=== PATIENT | female | born 1975 | race Caucasian/White ===

== ENCOUNTER 2022-03-19 16:08 | Outpatient (CLI) | payer BC, SELFPAY ==
[2022-03-19 17:32] LABS: Albumin* 4.2 g/dL (3.3-5.0); Chloride* 105 mmol/L (96-114)
[2022-03-19 17:33] LABS: Potassium* 4.4 mmol/L (3.6-5.1); Sodium* 139 mmol/L (135-149)
[2022-03-19 17:35] LABS: Carbon Dioxide* 29 mmol/L (20-32); Cholesterol* 157 mg/dL (90-199); Creatinine* 0.8 mg/dL (0.5-1.5); Estimated Glomerular Filt Rate 92 ml/min; Total Protein* 6.8 g/dL (6.0-8.3)
[2022-03-19 17:36] LABS: Alanine Aminotransferase* 22 U/L (4-35); Alkaline Phosphatase* 52 U/L (40-150); Aspartate Amino Transferase* 27 U/L (12-35); Bilirubin Total* 0.2 mg/dL (0.1-1.5); Blood Urea Nitrogen* 14 mg/dL (5-24); Calcium* 9.1 mg/dL (8.4-10.6); Glucose* 105 mg/dL (60-115); Triglycerides* 178 mg/dL (40-149)
[2022-03-19 17:37] LABS: HDL Cholesterol* 33 mg/dL (>=50); LDL Cholesterol Calculated 88 mg/dL (<100)
[2022-03-19 18:05] LABS: TSH With Reflex to FT4* 0.046 uIU/mL (0.270-4.200)
[2022-03-19 18:09] LABS: Ferritin* 22.6 ng/mL (6.24-137.0)
[2022-03-19 18:45] LABS: Free T4 Free Thyroxine* 1.04 ng/dL (0.70-1.85)
== END 2022-03-19 16:09 | disposition home or self-care (01) ==
PROVIDERS: PCP Family Medicine; Visit Provider Family Medicine
DX: Z00.00 Encounter for general adult medical examination without abnormal findings (principal); R53.83 Other fatigue; D50.9 Iron deficiency anemia, unspecified; E55.9 Vitamin D deficiency, unspecified; Z13.6 Encounter for screening for cardiovascular disorders
CPT/HCPCS: 80053; 80061; 82728; 84439; 84443

== ENCOUNTER 2022-08-19 11:37 | Outpatient (CLI) | payer SELFPAY ==
[2022-08-19 16:08] LABS: TSH With Reflex to FT4* 0.125 uIU/mL (0.270-4.200)
[2022-08-19 16:41] LABS: Free T4 Free Thyroxine* 0.97 ng/dL (0.70-1.85)
== END 2022-08-19 11:38 | disposition home or self-care (01) ==
LOC: NFLDREF 11:38
PROVIDERS: PCP Family Medicine; Visit Provider Family Medicine
DX: Z01.419 Encounter for gynecological examination (general) (routine) without abnormal findings (principal); E78.5 Hyperlipidemia, unspecified; R79.89 Other specified abnormal findings of blood chemistry; E66.9 Obesity, unspecified; D50.9 Iron deficiency anemia, unspecified
CPT/HCPCS: 84439; 84443

== ENCOUNTER 2022-09-23 14:05 | Outpatient (CLI) | payer OTHER, SELFPAY ==
--- NOTE | 2022-09-23 14:00 | CRLHL7_ITS ---
For Patients: As a result of the Century Cures Act, medical imaging exams and procedure reports are released immediately into your electronic medical record. You may view this report before your referring provider. If you have questions, please contact your health care provider. INDICATION: SUPERFICIAL VISIBLE DILATED VEINS COMPARISON: None. TECHNIQUE: A compression venous ultrasound exam was performed of the left lower extremity using rubio-scale imaging, color Doppler and spectral Doppler analysis. FINDINGS: Sonographic imaging of the left lower extremity demonstrates normal compressibility and color Doppler venous blood flow within the common femoral vein, deep femoral vein, and the proximal greater saphenous vein. Within the thigh, the femoral vein is patent and compressible. At a lower level, the popliteal and posterior tibial veins also show normal compressibility and color Doppler venous blood flow. Limited imaging of the contralateral groin demonstrates a normal spectral waveform and color Doppler venous blood flow within the right common femoral vein. Multiple superficial varicosities are present within the medial right calf with associated hypoechoic clot. IMPRESSION: No evidence of deep vein thrombosis within the left lower extremity. Superficial thrombophlebitis involving varicose veins in the medial right calf. Dictated by Rojelio Sol MD @ 09/23/2022 3:56:54 PM (Electronically Signed)
== END 2022-09-23 14:06 | disposition home or self-care (01) ==
PROVIDERS: PCP Family Medicine; Visit Provider Family Medicine
DX: M79.604 Pain in right leg (principal); I80.01 Phlebitis and thrombophlebitis of superficial vessels of right lower extremity
CPT/HCPCS: 93971

== ENCOUNTER 2024-03-16 15:11 | Outpatient (CLI) | payer OTHER, SELFPAY ==
--- OUTSIDE RECORDS SUMMARY | 2024-03-18 09:44 | XMS_ITS | Clinical Summary ---
Author Organization [facility] Address [place], [place] [address] Care Team Providers Care Sports Trainer Name Role Phone Xavier Liao MD Unavailable [phone] Pcp, No Primary Care Provider Unavailabl e Allergies Active Allergy Reactions Criticality Noted Date Comments Fish Oil Edema 12/04/2017 Hands swelled Sulfa (Sulfonamide Antibiotics) Rash 09/25 Rash on legs Medications Medication Sig Dispensed Refills Start Date End Date Status JOSE 180 MG TAB take 1 tablet (180 mg) by oral route once daily 0 0 07/07/2008 Active naphazoline-pheni ramine (OPCON-A) 0.59931-3.315 % ophthalmic solution 0 07/06/2019 Active montelukast (SINGULAIR) 10 mg tabletIndications :Allergic rhinitis, unspecified seasonality, unspecified trigger Take 1 tablet by mouth at bedtime. 90 tablet. 3 08/01/2020 Active busPIRone (BUSPAR) 10 mg tabletIndications :Anxiety Take 1 tab po Q am and 1/2 tab po q PM 135 tablet. 3 08/01/2020 Active aspirin (ECOTRIN) 81 mg enteric coated tablet Take 1 tablet by mouth once daily with a meal. 0 08/01/2020 Active Ferrous Sulfate, Dried (SLOW RELEASE IRON) 160 mg (50 mg iron) TbER Take by mouth. 0 08/01/2020 Active Biotin 10,000 mcg capsule Take 2 capsules by mouth. 0 08/01/2020 Active psyllium husk (METAMUCIL) 0.4 gram cap Take 2 capsules by mouth. 0 08/01/2020 Active Calcium-Cholecalc iferol, D3, 600 mg calcium- 200 unit cap Take by mouth. 0 08/01/2020 Active Emanu-7-CNZ-EPA-F alok Oil 1,000 mg (120 mg-180 mg) cap Take 1 capsule by mouth. 0 08/01/2020 Active hydrocortisone (ANUSOL-HC SUPPOSITORY) 25 mg suppositoryIndica tions:Hemorrhoids , external INSERT 1 SUPPOSITORY RECTALLY 2 TIMES DAILY. 15 Suppository 02/18/2021 Active sertraline (ZOLOFT) 50 mg tabletIndications :Adjustment disorder with depressed mood,Anxiety TAKE 1.5 TABLETS BY MOUTH ONCE DAILY. 45 Tablet 07/10/2021 Active omeprazole (PRILOSEC) 20 mg Delayed-Release capsuleIndication s:Gastric reflux TAKE 1 CAPSULE BY MOUTH ONCE DAILY BEFORE A MEAL. 30 Capsule 07/10/2021 Active Active Problems Problem Noted Date Diagnosed Date Routine adult health maintenance 12/29/2018 Overview: Colonoscopy 12/2018 internal hemorrhoids, repeat in 10 years Adjustment disorder with mixed anxiety and depre ssed mood 12/16/2018 Gastroesophageal reflux disease with esophagitis 02/22/2016 Overview: EGD 02/2016 reflux Asymptomatic varicose veins 02/28/2009 Allergic rhinitis, cause unspecified Immunizations Name Administration Dates Next Due AMB Influenza, IIV3 (Age >=3 years)(Flu Clinic Only) 07/07/2008 HepA-HepB (Twinrix) 08/01/2008,02/24/2008,2007 Influenza A (H1N1), Inactivated 05/16/2014 Influenza Virus, Unspecified 05/25/2013 Influenza, IIV3 (Age 6-35 mos) 05/27/2011 Influenza, IIV3 (Age >=3 years) 05/03/20 12,05/27/2011,06/10/2010,2008,07/07/2008,07/24/2007,07/01/2006 Influenza, IIV4 07/08/2016,06/05/2015,05/16/2014 Pneumococcal Poly,23-Valent (Pneumovax) 07/01/2006 Td (Age >=7 Years) 06/24/2006 Tdap 10/21/2011 Tuberculin (PPD) 03/05/2009 Family History Medical History Relation Name Comments Cancer Brother non hodgkins ly mphoma at age 47 Colonic polyp Father Heart Disease Father angiogram x2, first diagnosed in his 50's Coronary artery disease Mother [place] Cancer Other niece hodgkins lympho ma Leukemia Son Cancer-breast No Family History Relation Name Status Comments Brother Father Mother Other niece Alive Son Social History Tobacco Use Types Packs/Day Years Used Date Smoking Tobacco: Never Smokeless Tobacco: Never Tobacco Cessation:Counseling Given: Yes Alcohol Use Standard Drinks/Week Comments No 0 (1 standard drink = 0.6 oz pur e alcohol) PHQ-2 Answer Date Recorded PHQ-2 TOTAL SCORE 0 08/01/2020 Social Connections Answer Date Recorded Frequency of Communication with Friends and Fami ly Not on file 08/24/2021 Financial Resource Strain Answer Date R ecorded Difficulty of Paying Living Expenses Not on file 08/24/2021 Difficulty of Paying Living Expenses Not on file 08/24/2021 Sex and Gender Information Value Date Recorded Sex Assigned at Not on file Gender Identity Not on file Sexual Orientation Not on file Obstetrics History Para Term AB IAB SAB Ectopic Multiple Livin g Live Births 8 7 7 0 1 0 1 0 0 7 6 Date Outcome GA Total Labor Labor/2nd/3rd Weight Sex Type Anes PTL Yris A1 A5 Name Clin 1995 SAB 1996 Term 40w 0d 12h 00m/ 4.11 kg (9 lb 1 oz) M Vag Livin g tanika Delivery Location[place] Comments:kidney stone at 36 weeks 1998 Term 40w 0d 7h 00m/ 4.25 kg (9 lb 6 oz) M Vag Livin g mitche ll Delivery Location:[facility] Comments:induced 2000 Term 40w 0d 6h 00m/ 4.08 kg (9 lb) M Vag Livin g nitesh t Delivery Location:[place] 2002 Term 40w 0d 6h 00m/ 4.93 kg (10 lb 14 oz) M Vag Livin g mary iel Delivery Location:[place] Comments:induced, leuk emia at 1year 2006 Term 40w 0d 4h 00m/ 3.8 kg (8 lb 6 oz) F Vag Livin g Arlin Nahomi Delivery Location:[place] 2008 Term 40w 0d 3.91 kg (8 lb 10 oz) M Delmar Comer Delivery Location:[place] 2011 Term 40w 1d M Vag oz Comments:System Genera nazia. Please review and update details. Last Filed Vital Signs Vital Sign Reading Time Taken Comments Blood Pressure 106/71 08/01/2020 9:11 AM RECORDS ASSOCIATE Pulse 58 08/01/2020 9:11 AM RECORDS ASSOCIATE Temperature 36.8 ??C (98.2 ??F) 07/06/2019 10:[address] Respiratory Rate 16 01/11/2019 8:40 AM CDT Oxygen Saturation 99% 08/01/2020 9:11 AM RECORDS ASSOCIATE Inhaled Oxygen Concentration - - Weight 89.4 kg (197 lb) 08/01/2020 9:11 AM RECORDS ASSOCIATE Height 164.8 cm (5' 4.88) 08/01/2020 9:11 AM CS T Body Mass Index 32.9 08/01/2020 9:11 AM RECORDS ASSOCIATE Plan of Treatment Health Maintenance Due Date Last Done Comments Hepatitis C screening for age 18-79 1993 BMI (ht and wt on same day) for age 18+ 08/01/2021 08/01/2020, 07/06/2019, 04/27/2019, Additional history exists Mammogram for age 45-75 08/01/2021 08/01/2020, 07/29 Depression screening for age 12+ 08/02/2021 08/02/2020, 08/01/2020, 07/06/2019, Additional history exists Tetanus booster 10/21/2021 10/21/2011, 06/24/2006 COVID-19 vaccine series (2022-24 season) 2023 Pap test for age 21-65 08/01/2023 0, 11/11/2017, 06/12/2015, Additional history exists Influenza for age 9-49 04/24/2024 6, 06/05/2015, 05/16/2014, Additional history exists Lipids for age 45-75 08/01/2025 08/01/2020, 11/18/2017, 07/22/2016, Additional history exists Colonoscopy through age 75 12/29/202812/29, 12/29/2018, 12/29/2018 Pneumococcal series for age 6-64 Aged Out 07/01/2006 No longer eligible based on patient's age to complete this topic HIV for age 15-65 Completed 02/26/2011 Tdap Completed 10/21/2011 Procedures Procedure Name Priority Date/Time Associated Diagnosis Comments XR MAMMO BILAT SCREENING Routine 08/01/2020 11:34 AM RECORDS ASSOCIATE Encounter for screening mammogram for malignant neoplasm of breast LIPID PANEL W REFLEX MEASURED LDL Routine 08/01/2020 10:09 AM RECORDS ASSOCIATE Lipid screening LINE CLOSER THIN PREP PAP SCREEN IMAGED Routine 08/01/2020 9:50 AM RECORDS ASSOCIATE Pap smear for cervical cancer screening COLONOSCOPY 12/29/2018 8:52 AM CDT ANTI HIV 1/2 Routine 02/26/2011 9:54 AM CDT Amenorrhea confirmed from Last 3 Months or Most Recently Relevant to Health Maintenance Results * XR MAMMO BILAT SCREENING (08/01/2020 11:34 AM RECORDS ASSOCIATE) Anatomical Region Laterality Modality BREASTS, Breast Left, Breast Right Bilateral Mammography Impressions 08/02/2020 3:42 PM RECORDS ASSOCIATE ??There is no radiographic evidence for malignancy. ??Recommend annual mammograms. A lay language report of this examination will be provided to the patient. MAMMOGRAM ASSESSMENT: ??ACR 1 Negative Narrative 08/02/2020 3:42 PM RECORDS ASSOCIATE XR MAMMO BILAT SCREENING [[id number]] CLINICAL HISTORY: ??This is an asymptomatic 44 y.o. patient. INDICATION FOR EXAM: Mammogram Screening. TECHNIQUE: CC & MLO views were obtained. ??This digital study was evaluated with the assistance of Computer-Aided Detection. COMPARISON FILM: Yes 07/29/16 Neteven ?? FINDINGS: ??Mammographically, the breast tissue has scattered fibroglandular densities. ??There are no dominant masses, suspicious micro calcifications or areas of architectural distortion. Brenda Comer MD MAMMO * (ABNORMAL) LIPID PANEL W REFLEX MEASURED LDL (08/01/2020 10:09 AM RECORDS ASSOCIATE) CHOLESTEROL,TOTAL 170 100 - 199 mg/dL 08/01/2020 4:56 PM RECORDS ASSOCIATE [facility] TRIGLYCERIDES 111 <150 mg/dL 08/01/2020 4:56 PM RECORDS ASSOCIATE [facility] HDL CHOLESTEROL 34(L) >40 mg/dL 0 4:56 PM RECORDS ASSOCIATE [facility] NON-HDL CHOLESTEROL 136 <145 mg/dl 08/01/2020 4:56 PM RECORDS ASSOCIATE [facility] TRA LABORATORY CHOL/HDL RATIO 5.00(H) <4.50 08/01/2020 4:56 PM RECORDS ASSOCIATE [facility] TRAL [facility] LDL CHOLESTEROL 114 <=130 mg/dL 08/01/2020 4:56 PM [facility] PROVIDER ORDERED STATUS RANDOM 08/01/2020 4:56 PM [facility] Blood BLOOD SPECIMEN / Unknown Venipuncture / Unknown 08/01/2020 10:09 AM RECORDS ASSOCIATE 08/01/2020 10:09 AM RECORDS ASSOCIATE Brenda Comer MD CHEMISTRY [facility] [address] [place] [address], * LINE CLOSER THIN PREP PAP SCREEN IMAGED (08/01/2020 9:50 AM RECORDS ASSOCIATE) Pathologist [facility] [place] Case Report Gynecologic Cytology Report ? Case: [id number] ? Authorizing Provider: ??Brenda Comer MD ? Collected: ? 08/01/2020 0950 ? Ordering Location: ? [facility] ?? Received: ?08/01/2020 1144 ? Clinic ? First Screen: ?Say Calderon ? Specimen: ?LINE CLOSER ThinPrep Vial Screening, Cervical ? 08/14/2020 1:04 PM RECORDS ASSOCIATE [facility]AL [facility] INTERPRETATION/ RESULT NEGATIVE FOR INTRAEPITHELIAL LESION OR MALIGNANCY (NIL) (none) 08/14/2020 1:04 PM RECORDS ASSOCIATE [facility] IMEN ADEQUACY Satisfactory for evaluation Endocervical component present 08/14/2020 1:04 PM RECORDS ASSOCIATE [facility] HPV REQUEST HPV if ASCUS 08/14/2020 1:04 PM RECORDS ASSOCIATE [facility] Date of LMP 07/12/2020 08/14/2020 1:04 PM RECORDS ASSOCIATE [facility] Last Pap Date 11/11/17 08/14/2020 1:04 PM RECORDS ASSOCIATE [facility] Last Pap Result NIL 0 1:04 PM RECORDS ASSOCIATE [facility] Abnormal Pap or [place] Bx in last 5 years No 08/14/2020 1:04 PM RECORDS ASSOCIATE [facility] Menstrual Status Regular Periods 08/14/2020 1:04 PM RECORDS ASSOCIATE [facility] [place] Bx Done Today No 08/14/2020 1:04 PM RECORDS ASSOCIATE [facility] Additional Information None given 08/14/2020 1:04 PM RECORDS ASSOCIATE [facility] Comment: Cytology is screened at [facility] - [address], [place] [address] and [facility] - [address], [place] [address] and [facility] - [address] [place] [address] Interpreted at [facility] - [address], [place] [address] Automated Review Successful 08/14/2020 1:04 PM [facility] Comment:Specimen processed s uccessfully by automated pleat taper device, ThinPrep Imaging System, [employer] Note The pap test is a screening technique, not a diagnostic procedure. It is used primarily to screen for squamous cancers and precursor lesions. Published studies have shown that it is subject to both false negative and false positive results. The pap test should not be used as the sole means to diagnose or exclude pre-malignant and malignant lesions. 08/14/2020 1:04 PM [facility] Other (Cervical) Non-Blood / Unknown 08/01/2020 9:50 AM RECORDS ASSOCIATE 08/01/2020 11:44 AM RECORDS ASSOCIATE Brenda Comer MD PATHOLOGY/CYTOLOGY [facility] [address] [place] [address], [place] * COLONOSCOPY (12/29/2018 8:52 AM CDT) 12/29/2018 8:52 AM CDT Narrative Transcriptions Gianni Eddy MD - 12/29/2018 10:11 AM CDT Patient Name: Kelly Garduno Procedure Date: 12/29/2018 Gender: Female Date of : 1975 Admit Type: Outpatient Procedure: Colonoscopy Proceduralist: Gianni Eddy MD , Flor Rubio (Nurse) Referring MD: Deejay Valadez Indications/Pre-Op Diagnosis: Evaluation of unexplained GI bleeding Medications: Fentanyl 100 micrograms IV, Midazolam 4 mgIV, The level of sedation administered wasmoderate Procedure Description: The patient had risks, benefits and alternatives explained to andgave informed consent. The patient had a stable cardiopulmonary status and judged an adequate candidate for conscious sedation. The [id number] was passed through the anus and advanced tothe cecum, identified by appendiceal orifice and ileocecal valve. The colonoscopy was performed without difficulty. The patient toleratedthe procedure well. The quality of the bowel preparation was good. The ileocecal valve, appendiceal orifice, and rectum were photographed. Complications: No immediate complications. Estimated Blood Loss & Specimen: Estimated blood loss: none. Specimen collected - None Findings: The perianal and digital rectal examinations were normal. Non-bleeding internal hemorrhoids were found. The hemorrhoids weresmall. The exam was otherwise without abnormality on direct and retroflexion views. Impressions/Post-Op Diagnosis: - Non-bleeding internal hemorrhoids. - The examination was otherwise normal on direct and retroflexionviews. - No specimens collected. Recommendation: - Patient has a contact number available for emergencies. The signsand symptoms of potential delayed complications were discussed with the patient. Return to normal activities tomorrow. Written discharge instructions were provided to the patient. - Resume previous diet. - Continue present medications. - Repeat colonoscopy in 10 years for screening purposes. Moderate Sedation: Moderate (conscious) sedation was administered by the endoscopy nurse and supervised by the endoscopist. The following parameters were monitored: oxygen saturation, heart rate, respiratory rate, blood pressure, adequacy of pulmonary ventilation and reponse to care. Please refer to the patien'ts medical record flowsheets and nursing notes for moderate sedation details. Total physician intraservice time was 15 minutes. Gianni Eddy MD 12/29/2018 10:11:10 AM This report has been signed electronically. Note Initiated On: 12/29/2018 8:52 AM Procedure Code(s): --- Professional --- 60533, Colonoscopy, flexible; diagnostic, including collection of specimen(s) bybrushing or washing, when performed (separateprocedure) Diagnosis Code(s): --- Professional --- K64.8, Other hemorrhoids K92.2, Gastrointestinal hemorrhage,unspecified CPT copyright 2017 [employer]. All rights reserved. The codes documented in this report are preliminary and upon fleet maintenance manager reviewmay be revised to meet current compliance requirements. Scope In: 9:46:07 AM Scope Withdrawal Time 0 hours 7 minutes 24 seconds Scope Out: 9:57:41 AM Gianni Eddy MD PROCEDURE ORD * ANTI HIV 1/2 (02/26/2011 9:54 AM CDT) ANTI HIV 1/2 Non-reacti ve [facility] Blood specimen (specimen) BLOOD SPECIMEN / Unknown 02/26/2011 9:54 AM CDT 02/26/2011 9:46 AM CDT Brenda Comer MD SEND OUTS [facility] INTERNAL ZIP [id number] [address] [address] from Last 3 Months or Most Recently Relevant to Health Maintenance Care Teams Sports Trainer Relationship Specialty Start Date End Date Pcp, No . PCP - General 07/18/21 Xavier Liao MD [address] [place] [address] Perinatology CLINICAL NEUROPSYCHOLOGIST Perinatology 04/29/11
== END 2024-03-16 15:12 | disposition home or self-care (01) ==
LOC: NFLDREF 03-18 09:42
PROVIDERS: PCP Family Medicine; Referring Provider Family Medicine; Visit Provider Family Medicine
DX: D64.9 Anemia, unspecified (principal); E78.5 Hyperlipidemia, unspecified; R79.89 Other specified abnormal findings of blood chemistry; D50.9 Iron deficiency anemia, unspecified
CPT/HCPCS: 80053; 80061; 82728; 84443

== ENCOUNTER 2024-06-07 15:37 | Outpatient (CLI) | payer OTHER, SELFPAY ==
--- OUTSIDE RECORDS SUMMARY | 2024-06-07 15:41 | XMS_ITS | Clinical Summary ---
Author Organization [facility] Address [place], [place] [address] Care Team Providers Care Dairy Grazer Name Role Phone Xavier Liao MD Unavailable [phone] Pcp, No Primary Care Provider Unavailabl e Allergies Active Allergy Reactions Criticality Noted Date Comments Fish Oil Edema 12/04/2017 Hands swelled Sulfa (Sulfonamide Antibiotics) Rash 09/25 Rash on legs Medications Medication Sig Dispensed Refills Start Date End Date Status JOSE 180 MG TAB take 1 tablet (180 mg) by oral route once daily 0 0 07/07/2008 Active naphazoline-pheni ramine (OPCON-A) 0.52370-4.315 % ophthalmic solution 0 07/06/2019 Active montelukast [...] cap Take by mouth. 0 08/01/2020 Active Boqfn-1-[id number]-F alok Oil 1,000 mg (120 mg-180 mg) [...] Diagnosed Date Routine adult health maintenance 12/29/2018 Overview (12/29/2018): Colonoscopy 12/2018 internal hemorrhoids, repeat in 10 years Adjustment disorder with mixed anxiety and depre ssed mood 12/16/2018 Gastroesophageal reflux disease with esophagitis 02/22/2016 Overview (02/22/2016): EGD 02/2016 reflux Asymptomatic varicose veins 02/28/2009 Allergic rhinitis, cause unspecified Encounters Date Type Department Care Team Description 03/24/2024 Lab Requisition [facility] [phone] Sammie Dawson MD from Last 3 Months Immunizations Name Administration Dates Next Due AMB [...] in his 50's Coronary artery disease Mother ID Cancer Other niece hodgkins lympho ma Leukemia [...] oz) M Vag Livin g tanika Delivery Location:[place] Comments:kidney stone at 36 weeks 1998 Term 40w 0d 7h 00m/ 4.25 kg (9 lb 6 oz) M Vag Livin g mitche ll Delivery Location:[place] Comments:induced 2000 Term 40w 0d 6h 00m/ 4.08 kg (9 lb) M Vag Livin g nitesh t Delivery Location:[place] 2002 Term 40w 0d 6h 00m/ 4.93 kg (10 lb 14 oz) M Vag Livin g mary iel Delivery Location:[place] Comments:induced, leuk emia at 1year 2006 Term 40w 0d 4h 00m/ 3.8 kg (8 lb 6 oz) F Delmar Comer Delivery Location:[place] 2008 Term 40w 0d 3.91 kg (8 lb 10 oz) M Delmar Comer Delivery Location:[place] 2011 Term 40w 1d M Vag oz Comments:System Genera nazia. Please review and update details. Last Filed Vital Signs Vital Sign Reading Time Taken Comments Blood Pressure 106/71 08/01/2020 9:11 AM COMMODITIES REQUIREMENTS ANALYST Pulse 58 08/01/2020 9:11 AM COMMODITIES REQUIREMENTS ANALYST Temperature 36.8 ??C (98.2 ??F) 07/06/2019 10:[address] Respiratory Rate 16 01/11/2019 8:40 AM CDT Oxygen Saturation 99% 08/01/2020 9:11 AM COMMODITIES REQUIREMENTS ANALYST Inhaled Oxygen Concentration - - Weight 89.4 kg (197 lb) 08/01/2020 9:11 AM COMMODITIES REQUIREMENTS ANALYST Height 164.8 cm (5' 4.88) 08/01/2020 9:11 AM CS T Body Mass Index 32.9 08/01/2020 9:11 AM COMMODITIES REQUIREMENTS ANALYST Plan of Treatment Health Maintenance Due Date Last Done Comments Hepatitis C screening for age 18-79 1993 BMI (ht and wt on same day) for age 18+ 08/01/2021 08/01/2020, 07/06/2019, 04/27/2019, Additional history exists Mammogram for age 45-75 08/01/2021 08/01/2020, 07/29 Depression screening for age 12+ 08/02/2021 08/02/2020, 08/01/2020, 07/06/2019, Additional history exists Tetanus booster 10/21/2021 10/21/2011, 06/24/2006 COVID-19 vaccine series ( season) 2024 Influenza for age 9-49 04/24/2024 6, 06/05/2015, 05/16/2014, Additional history exists Lipids for age 45-75 08/01/2025 08/01/2020, 11/18/2017, 07/22/2016, Additional history exists Pap test for age 21-65 03/23/2027 4, 03/23/2024, 08/01/2020, Additional history exists Colonoscopy through age 75 12/29/202812/29, 12/29/2018, 12/29/2018 Pneumococcal series for age 6-64 Aged Out 07/01/2006 No longer eligible based on patient's age to complete this topic HIV for age 15-65 Completed 02/26/2011 Tdap Completed 10/21/2011 Procedures Procedure Name Priority Date/Time Associated Diagnosis Comments LAB TRACKING EVENT Routine 03/23/2024 1: 20 PM CDT HOT STAMP OPERATOR THIN PREP PAP SCREEN IMAGED Routine 03/23/2024 1:20 PM CDT HPV HIGH RISK Routine 03/23/2024 1:20 PM CDT XR MAMMO BILAT SCREENING Routine 08/01/2020 11:34 AM COMMODITIES REQUIREMENTS ANALYST Encounter for screening mammogram for malignant neoplasm of breast LIPID PANEL W REFLEX MEASURED LDL Routine 08/01/2020 10:09 AM COMMODITIES REQUIREMENTS ANALYST Lipid screening COLONOSCOPY 12/29/2018 8:52 AM CDT ANTI HIV 1/2 Routine 02/26/2011 9:54 AM CDT Amenorrhea confirmed from Last 3 Months or Most Recently Relevant to Health Maintenance Results * LAB TRACKING EVENT (03/23/2024 1:20 PM CDT) Other (Other) Client Collect / Unknown 03/23/2024 1:20 PM CDT 03/24/2024 4:22 PM CDT Sammie Dawson MD LAB BILL ONLY [facility] [address] [place] [address], * HOT STAMP OPERATOR THIN PREP PAP SCREEN IMAGED (03/23/2024 1:20 PM CDT) Case Report Gynecologic Cytology Report ? Case: [id number] ? Authorizing Provider: ??Sammie Dawson MD ??Collected: ? 03/23/2024 1320 ? Ordering Location: ? [facility] ?Received: ?03/25/2024 0927 ? First Screen: ?Ashley Bose ? Specimen: ?HOT STAMP OPERATOR ThinPrep Vial Screening, Cervical/Vaginal ? 03/31/2024 1:16 PM CDT [facility] INTERPRETATION/ RESULT NEGATIVE FOR INTRAEPITHELIAL LESION OR MALIGNANCY (NIL) (none) 03/31/2024 1:16 PM CDT [facility] IMEN ADEQUACY Satisfactory for evaluation Endocervical component present 03/31/2024 1:16 PM CDT [facility] HPV REQUEST HPV and PAP 03/31/2024 1:16 PM CDT [facility] Date of LMP 03/03/2024 03/31/2024 1:16 PM CDT [facility] Last Pap Date 08/01/2020 03/31/2024 1:16 PM CDT [facility] Last Pap Result NIL 1:16 PM CDT [facility] Menstrual Status Regular Periods 03/31/2024 1:16 PM CDT [facility] [place] Bx Done Today No 03/31/2024 1:16 PM CDT [facility] Additional Information 03/31/2024 1:16 PM CDT [facility] Comment: Interpreted at [facility] - [address], [place] [address] Automated Review Successful 03/31/2024 1:16 PM CDT [facility] Comment:Specimen processed s uccessfully by automated pulpit operator device, ThinPrep Imaging System, [employer] ANCILLARY TESTING HOT STAMP OPERATOR HPV Ordered, Please see separate report 03/31/2024 1:16 PM CDT [facility] Note The pap test is a screening technique, not a diagnostic procedure. It is used primarily to screen for squamous cancers and precursor lesions. Published studies have shown that it is subject to both false negative and false positive results. The pap test should not be used as the sole means to diagnose or exclude pre-malignant and malignant lesions. 03/31/2024 1:16 PM CDT [facility] Other (Cervical/Vagina l) 03/23/2024 1:20 PM CDT 03/25/2024 9:27 AM CDT Sammie Dawson MD PATHOLOGY/CYTOLO GY [facility] [address] [place] [address], * HPV HIGH RISK (03/23/2024 1:20 PM CDT) TYPE 16 Negative Negative 03/28/2024 2:30 PM CDT [facility] TYPE 18 Negative Negative 03/28/2024 2:30 PM CDT [facility] OTHER HIGH RISK TYPES Negative Negative 03/28/2024 2:30 PM CDT [facility] Other (Cervical/Vagina l) 03/23/2024 1:20 PM CDT 03/25/2024 9:27 AM CDT Narrative [facility] - 03/28/2024 2:30 PM CDT HPV types 16, 18, 31, 33, 35, 39, 45, 51, 52, 56, 58, 59, 66 and 68 DNA were undetectable or below the pre-set threshold. Methodology: Julieta Matias 4800 HPV Test Sammie Dawson MD MICROBIOLOGY [facility] [address] [place] [address], * XR MAMMO BILAT SCREENING (08/01/2020 11:34 AM COMMODITIES REQUIREMENTS ANALYST) Anatomical Region Laterality Modality BREASTS, Breast Left, Breast Right Bilateral Mammography Impressions 08/02/2020 3:42 PM COMMODITIES REQUIREMENTS ANALYST ??There is no radiographic evidence for malignancy. ??Recommend annual mammograms. A lay language report of this examination will be provided to the patient. MAMMOGRAM ASSESSMENT: ??ACR 1 Negative Narrative 08/02/2020 3:42 PM COMMODITIES REQUIREMENTS ANALYST XR MAMMO BILAT SCREENING [[id number]] CLINICAL HISTORY: ??This is an asymptomatic 44 y.o. patient. INDICATION FOR EXAM: Mammogram Screening. TECHNIQUE: CC & MLO views were obtained. ??This digital study was evaluated with the assistance of Computer-Aided Detection. COMPARISON FILM: Yes 07/29/16 [facility] ?? FINDINGS: ??Mammographically, the breast tissue has scattered fibroglandular densities. ??There are no dominant masses, suspicious micro calcifications or areas of architectural distortion. Brenda Comer MD MAMMO * (ABNORMAL) LIPID PANEL W REFLEX MEASURED LDL (08/01/2020 10:09 AM COMMODITIES REQUIREMENTS ANALYST) CHOLESTEROL,TOTAL 170 100 - 199 mg/dL 08/01/2020 4:56 PM COMMODITIES REQUIREMENTS ANALYST [facility] TRIGLYCERIDES 111 <150 mg/dL 08/01/2020 4:56 PM COMMODITIES REQUIREMENTS ANALYST [facility] HDL CHOLESTEROL 34(L) >40 mg/dL 0 4:56 PM COMMODITIES REQUIREMENTS ANALYST [facility] NON-HDL CHOLESTEROL 136 <145 mg/dl 08/01/2020 4:56 PM COMMODITIES REQUIREMENTS ANALYST [facility] CHOL/HDL RATIO 5.00(H) <4.50 08/01/2020 4:56 PM COMMODITIES REQUIREMENTS ANALYST [facility] LDL CHOLESTEROL 114 <=130 mg/dL 08/01/2020 4:56 PM COMMODITIES REQUIREMENTS ANALYST [facility] PROVIDER ORDERED STATUS RANDOM 08/01/2020 4:56 PM COMMODITIES REQUIREMENTS ANALYST [facility] Blood BLOOD SPECIMEN / Unknown Venipuncture / Unknown 08/01/2020 10:09 AM COMMODITIES REQUIREMENTS ANALYST 08/01/2020 10:09 AM COMMODITIES REQUIREMENTS ANALYST Brenda Comer MD [facility] [address] [place] [address], [place] * COLONOSCOPY (12/29/2018 8:52 AM CDT) [...] adequate candidate for conscious sedation. The [id number] was passed through the anus and advanced [...] reponse to care. [facility] nursing [facility] for moderate sedation details. Total physician intraservice time was 15 minutes. Gianni Eddy MD 12/29/2018 10:11:10 AM This report has been signed electronically. Note Initiated On: 12/29/2018 8:52 AM Procedure Code(s): --- Professional --- 97498, Colonoscopy, flexible; diagnostic, including collection of specimen(s) bybrushing or washing, when performed (separateprocedure) Diagnosis Code(s): --- Professional --- K64.8, Other hemorrhoids K92.2, Gastrointestinal hemorrhage,unspecified CPT copyright 2017 [employer]. All rights reserved. The codes documented in this report are preliminary and upon drapery sewer hand reviewmay be revised to meet current compliance requirements. Scope In: 9:46:07 AM Scope Withdrawal Time 0 hours 7 minutes 24 seconds Scope Out: 9:57:41 AM Gianni Eddy MD PROCEDURE ORD * ANTI HIV 1/2 (02/26/2011 9:54 AM CDT) ANTI HIV 1/2 Non-reacti ve Blood specimen (specimen) BLOOD SPECIMEN / Unknown 02/26/2011 9:54 AM CDT 02/26/2011 9:46 AM CDT Brenda Comer MD [facility] INTERNAL ZIP [id number] [address] from Last 3 Months or Most Recently Relevant to Health Maintenance Care Teams Dairy Grazer Relationship Specialty Start Date End Date Pcp, No . PCP - General 07/18/21 Xavier Liao MD [address] [place] [address] Perinatology LIME SLUDGE KILN OPERATOR Perinatology 04/29/11
--- NOTE | 2024-06-07 16:00 | CRLHL7_ITS ---
For Patients: As a result of the Century Cures Act, medical imaging exams and procedure reports are released immediately into your electronic medical record. You may view this report before your referring provider. If you have questions, please contact your health care provider. BILATERAL SCREENING MAMMOGRAM WITH COMPUTER-AIDED DETECTION AND TOMOSYNTHESIS TECHNIQUE: CC and MLO views were obtained. These mammographic images have been obtained using full-field digital technique. These mammographic images were interpreted with the benefit of computer-aided detection. Breast Tomosynthesis was used in this interpretation. COMPARISON FILM: 08/01/20. FINDINGS: There are scattered areas of fibroglandular density. IMPRESSION: There is no radiographic evidence for malignancy. ASSESSMENT: BI-RADS Category 1: Negative RECOMMENDATION: Routine screening mammogram in 1 year. A lay language report of this examination will be provided to the patient. Rojelio Sol M.D. Diagnostic Radiologist [email or web address] SP/Dictated by: Rojelio Sol MD @ 06/14/2024 11:34:00 AM (Electronically Signed)
== END 2024-06-07 15:38 | disposition home or self-care (01) ==
LOC: MAMMO 15:38
PROVIDERS: PCP Family Medicine; Visit Provider Family Medicine
DX: Z12.31 Encounter for screening mammogram for malignant neoplasm of breast (principal)
CPT/HCPCS: 77063; 77067

== ENCOUNTER 2024-09-27 15:01 | Outpatient (CLI) | payer OTHER, SELFPAY ==
--- NOTE | 2024-09-27 15:45 | CRLHL7_ITS ---
For Patients: As a result of the Century Cures Act, medical imaging exams and procedure reports are released immediately into your electronic medical record. You may view this report before your referring provider. If you have questions, please contact your health care provider. INDICATION: Pain in right leg COMPARISON: 09/23/2022 TECHNIQUE: A compression venous ultrasound exam was performed of the right lower extremity using rubio-scale imaging, color Doppler and spectral Doppler analysis. FINDINGS: Sonographic imaging of the right lower extremity demonstrates normal compressibility and color Doppler venous blood flow within the common femoral vein and deep femoral vein. Within the thigh, the femoral vein is patent and compressible. At a lower level, the popliteal and posterior tibial veins also show normal compressibility and color Doppler venous blood flow. Hypoechoic noncompressible thrombus is present within a varicose vein within the proximal posterior thigh. The previously noted superficial clot within the right calf was not imaged on the current study. Limited imaging of the contralateral groin demonstrates a normal spectral waveform and color Doppler venous blood flow within the left common femoral vein. IMPRESSION: No DVT. Superficial thrombus within a varicose vein in the right posterior thigh. Would consider anticoagulation treatment. Dictated by Rojelio Sol MD @ 09/27/2024 4:29:47 PM (Electronically Signed)
== END 2024-09-27 15:02 | disposition home or self-care (01) ==
LOC: US 15:01
PROVIDERS: PCP Family Medicine; Visit Provider Registered Nurse
DX: M79.604 Pain in right leg (principal); I82.811 Embolism and thrombosis of superficial veins of right lower extremity
CPT/HCPCS: 93971

== ENCOUNTER 2024-11-15 14:48 | Outpatient (CLI) | payer OTHER, SELFPAY | END 2024-11-15 14:49 | disposition home or self-care (01) | LOC: US 14:49 | PROVIDERS: PCP Family Medicine; Visit Provider Registered Nurse | DX: I82.811 Embolism and thrombosis of superficial veins of right lower extremity (principal) | CPT/HCPCS: 93971 ==

== ENCOUNTER 2025-03-14 09:00 | Outpatient (RCR) | payer OTHER, SELFPAY | END 2025-05-22 09:48 | disposition home or self-care (01) | PROVIDERS: PCP Family Medicine; Visit Provider Registered Nurse | DX: S83.91XD Sprain of unspecified site of right knee, subsequent encounter (principal); Z51.89 Encounter for other specified aftercare | CPT/HCPCS: 97110; 97161 ==